=== PATIENT | male | born 1945 | race Caucasian/White ===

== ENCOUNTER 2024-07-23 08:09 | Outpatient (CLI) | payer MEDICARE, SELFPAY ==
[2024-07-23] VITALS (7 sets, daily range): BP systolic 83–150; BP diastolic 40–65; PULSE 60–91; RESP 16–22; TEMP 36.3; O2SAT 98–100; BMI 161.2
--- NOTE | 2024-07-23 10:50 | P.ANES_ITS ---
Anesthesia Charges Start Date/Time Anesthesia Start Date: 07/23/24 Anesthesia Start Time: 10:29 Stop Date/Time Anesthesia Stop Date: 07/23/24 Anesthesia Stop Time: 10:41 Summary Extremes of Age - Over 70 or under 1: MARKETING OPERATIONS ASSOCIATE Coding CPT Codes CPT Codes: ANESTH BONE ASPIRATE/BX - 31397 ([id number]) P3 - PATIENT W/SEVERE SYS DISEASE, QK - LEATHER TOOLER 2-4 CNCRNT ANES PROC, QX - MARKETING OPERATIONS ASSOCIATE SVC W/ MD MED DIRECTION Additional Codes: Summary - Extremes of Age - Over 70 or under 1: MARKETING OPERATIONS ASSOCIATE ([id number])
--- NOTE | 2024-07-23 10:50 | W.ANESCHARGE ---
Anesthesia Charges Start Date/Time Anesthesia Start Date: 07/23/24 Anesthesia Start Time: 10:29 Stop Date/Time Anesthesia Stop Date: 07/23/24 Anesthesia Stop Time: 10:41 Summary Extremes of Age - Over 70 or under 1: PROFESSIONAL SECURITY OFFICER Coding CPT Codes CPT Codes: ANESTH BONE ASPIRATE/BX - 59455 ([id number]) P3 - PATIENT W/SEVERE SYS DISEASE, QK - PRINCIPAL PROCESS ENGINEER 2-4 CNCRNT ANES PROC, QX - PROFESSIONAL SECURITY OFFICER SVC W/ MD MED DIRECTION Additional Codes: Summary - Extremes of Age - Over 70 or under 1: PROFESSIONAL SECURITY OFFICER ([id number])
[2024-07-23 10:52] LABS: Basophils Absolute Auto 0.02 K/uL (0.00-0.30); Basophils Percent Auto 0.3 % (0.0-3.0); Eosinophils Absolute Auto 0.11 K/uL (0.00-0.50); Eosinophils Percent Auto 1.7 % (0.0-7.0); Hematocrit 27.6 % (37.0-53.0); Hemoglobin* 8.8 gm/dL (13.5-17.5); Immature Granulocytes Abs Auto 0.01 K/uL (0.00-0.30); Immature Granulocytes Pct Auto 0.2 %; Immature Reticulocyte Fraction 13.5 % (2.3-13.4); Lymphocytes Percent Auto 8.2 % (20-44); Mean Corpuscular HGB Conc 32 gm/dL (32-36); Mean Corpuscular Hemoglobin 36 pg (26-34); Mean Corpuscular Volume 114 fL (80-100); Monocytes Percent Auto 8.8 % (0.0-11.0); Neutrophils Percent Auto 80.8 % (42.0-72.0); Platelet Count* 183 K/uL (140-440); RDW Coefficient of Variation % 11.8 % (11.5-15.5); Red Blood Count 2.43 m/uL (4.30-5.90); Reticulocyte Hemoglobin Equivi 35.3 pg (29.0-35.0); Reticulocyte Percent 1.7 % (0.5-2.0); Reticulocytes Absolute 0.04 # (0.03-0.08); White Blood Count* 6.38 K/uL (4.50-11.00)
[2024-07-23 10:53] LABS: Slide Review Reflex No
--- NOTE | 2024-07-23 11:04 | W.ANESCHARGE ---
Anesthesia Charges Start Date/Time Anesthesia Start Date: 07/23/24 Anesthesia Start Time: 10:29 Stop Date/Time Anesthesia Stop Date: 07/23/24 Anesthesia Stop Time: 10:41 Summary Extremes of Age - Over 70 or under 1: MDA Coding CPT Codes CPT Codes: ANESTH BONE ASPIRATE/BX - 61036 ([id number]) QK - PHARMACOLOGY PROFESSOR 2-4 CNCRNT ANES PROC, QX - UTILITY INSPECTOR SVC W/ MD MED DIRECTION, P3 - PATIENT W/SEVERE SYS DISEASE Additional Codes: Summary - Extremes of Age - Over 70 or under 1: MDA ([id number])
[2024-07-23 11:42] LABS: Albumin* 4.5 g/dL (3.3-5.0); Chloride* 104 mmol/L (96-114); Potassium* 4.5 mmol/L (3.6-5.1); Sodium* 139 mmol/L (135-149)
[2024-07-23 11:44] LABS: Iron* 86 ug/dL (49-181)
[2024-07-23 11:45] LABS: Alanine Aminotransferase* 19 U/L (4-50); Alkaline Phosphatase* 61 U/L (40-150); Anion Gap 10 mEq/L (7-15); Aspartate Amino Transferase* 29 U/L (12-35); Bilirubin Total* 0.6 mg/dL (0.1-1.5); Blood Urea Nitrogen* 37 mg/dL (7-30); Calcium* 9.8 mg/dL (8.4-10.6); Carbon Dioxide* 25 mmol/L (20-32); Creatinine* 1.3 mg/dL (0.5-1.5); Est. Creatinine Clearance* 52.33; Estimated Glomerular Filt Rate 56 ml/min; Glucose* 120 mg/dL (60-115); Total Protein* 6.6 g/dL (6.0-8.3)
[2024-07-23 11:54] LABS: Percent Iron Saturation 23 % (20-50); Total Iron Binding Capacity 370 ug/dL (261-462)
[2024-07-23 12:19] LABS: Ferritin* 27.3 ng/mL (17.9-464.0)
[2024-07-23 12:34] LABS: Vitamin B12* 718 pg/mL (243-894)
[2024-07-24 12:56] LABS: Folate, Serum >22.3 ng/mL (>=5.9)
[2024-07-26 04:29] LABS: Alpha 1 Globulin 0.32 g/dL (0.19-0.46); Alpha 2 Globulin 0.57 g/dL (0.48-1.05); Immunofixation IFE Done; Immunoglobulin A 129 mg/dL (68-408); Immunoglobulin G 818 mg/dL (768-1632); Immunoglobulin M 42 mg/dL (35-263); Kappa/Lambda Light Chain Ratio 2.07 (0.26-1.65); Lambda Qnt Free Light Chains 19.41 mg/L (5.71-26.30); Monoclonal Protein 0.49 g/dL (<=0.00); Total Protein, Serum 6.6 g/dL (6.3-8.2)
== END 2024-07-23 11:30 | disposition home or self-care (01) ==
PROVIDERS: PCP Internal Medicine; Visit Provider Internal Medicine Hematology & Oncology
DX: D47.2 Monoclonal gammopathy (principal); D64.9 Anemia, unspecified; R19.5 Other fecal abnormalities; D75.89 Other specified diseases of blood and blood-forming organs
CPT/HCPCS: 01112; 36415; 38222; 80053; 82607; 82728; 82746; 82784; 83520; 83540; 83550; 84155; 84165; 85025; 85045; 86334; 88184; 88185; 88237; 88264; 88305; 88311; 88313; 88342; 88360; 99100; J1644; J2003; J2704

== ENCOUNTER 2024-10-27 14:30 | Outpatient (RCR) | payer MEDICARE, SELFPAY ==
--- NOTE | 2024-05-07 09:56 | URNOTE ---
Request received for authorization for Carmina ([id number]). Prior authorization is not required per [facility] injectable drug authorization list.
[2024-05-08 13:12] VITALS: BP 133/61; PULSE 79; RESP 19; TEMP 36.6; O2SAT 94
[2024-05-08] MEDS: ferumoxytoL 510 MG in 0.9 % SODIUM CHLORIDE 250 ml 250 ML 1068 MG IVPB (14:44)
[2024-05-08 15:00] VITALS: BP 123/57; PULSE 71; RESP 16; O2SAT 97
[2024-05-08 15:30] VITALS: BP 131/62; PULSE 67; RESP 16; O2SAT 98
--- NOTE | 2024-05-08 16:23 | ONC.NURNOTE ---
Patient in clinic today for Feraheme infusion. Patient reports he had labs this morning and got a 24 hour urine collection kit. He was advised to not take his aspirin for 3 days while doing the urine collection. He is concerned if he should wait on the iron infusions until after he is done with the urine collection. RN reached out to Dr. Brody who stated it was ok for patient to receive the iron infusion and it would have no affect on his urine results. 1st dose of Feraheme given today.
[2024-05-15 13:01] VITALS: BP 134/66; PULSE 64; RESP 16; TEMP 36.2; O2SAT 100
[2024-05-15] MEDS: ferumoxytoL 510 MG in 0.9 % SODIUM CHLORIDE 250 ml 250 ML 840 MG IVPB (13:34)
[2024-05-15] MEDS: SODIUM CHLORIDE 0.9 % (FLUSH) 10 ML SYRINGE IVF (13:39)
[2024-05-15] MEDS: 0.9 % SODIUM CHLORIDE 500 ML IV (13:39)
[2024-05-15 13:59] VITALS: BP 106/57; PULSE 60; RESP 16; O2SAT 93
[2024-05-15 14:33] VITALS: BP 122/54; PULSE 63; RESP 16; O2SAT 96
[2024-08-19 13:14] VITALS: BP 124/63; PULSE 80; RESP 18; TEMP 36.5; O2SAT 95
[2024-08-19 13:28] LABS: Hematocrit 30.0 % (37.0-53.0); Hemoglobin* 9.5 gm/dL (13.5-17.5); Immature Granulocytes Abs Auto 0.01 K/uL (0.00-0.30); Immature Granulocytes Pct Auto 0.2 %; Mean Corpuscular HGB Conc 32 gm/dL (32-36); Mean Corpuscular Hemoglobin 35 pg (26-34); Mean Corpuscular Volume 111 fL (80-100); RDW Coefficient of Variation % 12.1 % (11.5-15.5); Red Blood Count 2.70 m/uL (4.30-5.90); White Blood Count* 5.80 K/uL (4.50-11.00)
[2024-08-19 13:34] LABS: Lymphocytes Absolute Auto 0.80 K/uL (0.90-2.90)
[2024-08-19 13:35] LABS: Slide Review Reflex No
[2024-08-19 13:39] LABS: Fecal Occult Blood* Positive (Negative)
[2024-08-19 13:52] LABS: Iron* 99 ug/dL (49-181)
[2024-08-19] MEDS: ferumoxytoL 510 MG in 0.9 % SODIUM CHLORIDE 250 ml 250 ML 1068 MG IVPB (13:58)
[2024-08-19] MEDS: DARBEPOETIN ALFA (NON DIALYSIS) 100 MCG SUBCUT (13:58)
[2024-08-19 14:02] LABS: Percent Iron Saturation 26 % (20-50); Total Iron Binding Capacity 378 ug/dL (261-462)
[2024-08-19 14:20] VITALS: BP 134/67; PULSE 59; RESP 16; TEMP 36.3; O2SAT 97
[2024-08-19 14:50] VITALS: BP 144/72; PULSE 68; RESP 16; TEMP 36.2; O2SAT 97
[2024-08-28 13:00] VITALS: BP 155/72; PULSE 79; RESP 16; TEMP 35.9; O2SAT 98
[2024-08-28] MEDS: ferumoxytoL 510 MG in 0.9 % SODIUM CHLORIDE 250 ml 250 ML 1068 MG IVPB (13:11)
[2024-08-28] MEDS: 0.9 % SODIUM CHLORIDE 500 ML IV (13:11)
[2024-08-28] MEDS: SODIUM CHLORIDE 0.9 % (FLUSH) 10 ML SYRINGE IVF (13:11)
[2024-08-28 13:49] VITALS: BP 124/63; PULSE 60; RESP 16; TEMP 36.4; O2SAT 96
[2024-08-28 14:05] VITALS: BP 135/67; PULSE 60; RESP 16; TEMP 36.1; O2SAT 97
[2024-09-16 13:25] VITALS: BP 153/75; PULSE 85; RESP 15; TEMP 36.7; O2SAT 96
[2024-09-16 13:42] LABS: Hematocrit 31.0 % (37.0-53.0); Hemoglobin* 10.1 gm/dL (13.5-17.5); Immature Granulocytes Abs Auto 0.00 K/uL (0.00-0.30); Immature Granulocytes Pct Auto 0.0 %; Mean Corpuscular HGB Conc 33 gm/dL (32-36); Mean Corpuscular Hemoglobin 36 pg (26-34); Mean Corpuscular Volume 110 fL (80-100); RDW Coefficient of Variation % 12.8 % (11.5-15.5); Red Blood Count 2.83 m/uL (4.30-5.90); White Blood Count* 6.58 K/uL (4.50-11.00)
[2024-09-16 13:48] LABS: Lymphocytes Absolute Auto 0.50 K/uL (0.90-2.90); Slide Review Reflex No
[2024-09-16] MEDS: DARBEPOETIN ALFA (NON DIALYSIS) 100 MCG SUBCUT (14:17)
[2024-10-14 13:37] LABS: Hematocrit 28.7 % (37.0-53.0); Hemoglobin* 9.2 gm/dL (13.5-17.5); Immature Granulocytes Abs Auto 0.01 K/uL (0.00-0.30); Immature Granulocytes Pct Auto 0.2 %; Mean Corpuscular HGB Conc 32 gm/dL (32-36); Mean Corpuscular Hemoglobin 35 pg (26-34); Mean Corpuscular Volume 110 fL (80-100); RDW Coefficient of Variation % 13.3 % (11.5-15.5); Red Blood Count 2.60 m/uL (4.30-5.90); White Blood Count* 5.95 K/uL (4.50-11.00)
[2024-10-14 13:39] LABS: Lymphocytes Absolute Auto 0.60 K/uL (0.90-2.90); Slide Review Reflex No
[2024-10-14 14:11] VITALS: BP 146/72; PULSE 80; RESP 18; TEMP 36.4; O2SAT 97
[2024-10-14] MEDS: DARBEPOETIN ALFA (NON DIALYSIS) 100 MCG SUBCUT (14:15)
[2024-10-14 14:19] LABS: Iron* 80 ug/dL (49-181)
[2024-10-14 14:29] LABS: Percent Iron Saturation 25 % (20-50); Total Iron Binding Capacity 325 ug/dL (261-462)
[2024-10-16 23:55] LABS: Albumin 4.26 g/dL (3.75-5.01); Immunoglobulin A 128 mg/dL (68-408); Immunoglobulin G 783 mg/dL (768-1632); Immunoglobulin M 38 mg/dL (35-263)
== END 2024-11-04 23:59 | disposition home or self-care (01) ==
LOC: CCIC 14:30
PROVIDERS: Clinical Nurse Specialist; PCP Internal Medicine; Referring Provider Internal Medicine; Visit Provider Internal Medicine Hematology & Oncology
DX: D53.9 Nutritional anemia, unspecified (principal); N18.32 Chronic kidney disease, stage 3b; D47.2 Monoclonal gammopathy; D75.89 Other specified diseases of blood and blood-forming organs; G62.9 Polyneuropathy, unspecified; Z95.2 Presence of prosthetic heart valve; Z79.01 Long term (current) use of anticoagulants; R19.5 Other fecal abnormalities; N18.9 Chronic kidney disease, unspecified
CPT/HCPCS: 36415; 82270; 82728; 82784; 83520; 83540; 83550; 84155; 84165; 84443; 85025; 86334; 96365; 96372; 99202; 99205; 99214; 99215; G0463; J0881; J2704; J7030; J7050; Q0138

== ENCOUNTER 2024-12-10 16:17 | Emergency (ER) | payer MEDICARE, SELFPAY ==
[2024-12-10] VITALS (22 sets, daily range): BP systolic 119–165; BP diastolic 60–95; PULSE 57–95; RESP 15–20; TEMP 36.6–37; O2SAT 93–98; BMI 24.1
--- OUTSIDE RECORDS SUMMARY | 2024-12-10 16:20 | XMS_ITS | Clinical Summary ---
Author Organization [facility] Address [address] [place] [id number] Care Team Providers Care Strategic Marketing Leader Name Role Phone Abdiaziz Zurita Primary Care Provider [phone] Allergies No known active allergies Medications WARFARIN SODIUM (COUMADIN ORAL) Take 9 mg by mouth once daily. Active hydroCHLOROthi azide (HCTZ) 25 mg tablet Take 25 mg by mouth once daily. Active aspirin chewable 81 mg chewable tablet Take 81 mg by mouth once daily with a meal. Active buPROPion (WELLBUTRIN SR) 150 mg Sustained-Rele ase tablet Take 150 mg by mouth 2 times daily. Active lisinopriL (PRINIVIL; ZESTRIL) 10 mg tablet Take 1 Tablet by mouth once daily. Active ferrous gluconate 324 mg (37.5 mg iron) tab tablet Take 324 mg by mouth once every other day. Active multivitamin (MVI) tablet Take 1 Tablet by mouth once daily. Active verapamil SR (CALAN SR) 120 mg Sustained-Rele ase tablet Take 1 Tablet by mouth once daily with a meal. 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 Max acetaminophen dose: 4000 mg in 24 hrs. 8 Tablet 11/17/2020 10:34 AM CDT 08/11/202 1 Active Social History Tobacco Use Types Packs/Day Years Used Date Smoking Tobacco: Former Smokeless Tobacco: Never Tobacco Cessation:Counseling Given: No Comments:quit 2010 Alcohol Use Standard Drinks/Week Comments Yes 0 (1 standard drink = 0.6 oz pur e alcohol) very little Sex and Gender Information Value Date Recorded Sex Assigned at Not on file Legal Sex Male 1:26 PM CDT Gender Identity Not on file Sexual Orientation Not on file Obstetrics History Last Filed Vital Signs Vital Sign Reading Time Taken Comments Blood Pressure 129/78 11/17/2020 12:00 PM CDT Pulse 66 11/17/2020 12:00 PM CDT Temperature 36.6 C (97.8 F) 11/17/2020 9:05 AM CDT Respiratory Rate 16 11/17/2020 12:00 PM CDT Oxygen Saturation 95% 11/17/2020 9:10 AM CDT Inhaled Oxygen Concentration - - Weight 93 kg (205 lb) 11/17/2020 6:09 AM CDT Height 181 cm (5' 11.26) 11/17/2020 6:09 AM CDT Body Mass Index 28.38 11/17/2020 6:09 AM CDT Plan of Treatment Health Maintenance Due Date Last Done Comments Tetanus booster 1957 Depression screening for age 12+ 1958 BMI (ht and wt on same day) for age 18+ 01/27/1964 Hepatitis C screening for age 18-79 01/27/1964 Pneumococcal series for age 50+ (1 of 1 - PCV) 01/27/1996 Zoster (shingles) series for age 50+ (1 of 2) 01/27/1996 RSV vaccine for adults or (1 - 1-dose 75+ series) 2021 COVID-19 vaccine series ( season) 2023 08/05/2021, 12/03/2020, 06/25/2020, Additional history exists Influenza Vaccine (#1) 2024 Hepatitis B series for 19+ Aged Out N o longer eligible based on patient's age to complete this topic Insurance MEDICARE PART B HB ONLY MEDICARE PB ONLY [facility] MR Advance Directives * Full Code (Latest Code Status on File) Date Activated Date Inactivated Comments 11/17/2020 5:45 AM 11/17/2020 3:38 PM Question Answer Comments Code Status Discussion: Not Discussed Care Teams Strategic Marketing Leader Relationship Specialty Start Date End Date Abdiaziz Zurita PA PCP - General 08/24/16
--- NOTE | 2024-12-10 16:52 | ED.GENADULT ---
HPI - General Adult General Chief complaint: Weakness Stated complaint: Hemoglobin is low, possible bleeding, sent by clin Time Seen by Provider: 12/10/24 16:24 Source: patient Mode of arrival: ambulatory Limitations: no limitations History of Present Illness HPI narrative: Mr. 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 Patient had a clinic appointment today and found have a hemoglobin of 7.1. States that for the last 2 weeks he has felt more fatigued than usual. He states that he has a good appetite. Patient has stool studies that have been positive for blood for many months. He states that his stools are usually dark have been that way for over a year, no recent changes. He denies chest pain, shortness of breath or abdominal pain. Denies feeling dizzy or lightheaded. Related Data Home Medications ?Medication ?Instructions ?Recorded ?Confirmed amoxicillin 500 mg capsule 2,000 mg PO .PRE PRN 05/15/24 10/27/24 carvedilol 12.5 mg tablet 12.5 mg PO Q12H 05/15/24 10/27/24 ferrous sulfate 325 mg (65 mg 325 mg PO DAILY 05/15/24 10/27/24 iron) tablet (FeroSul) hydrochlorothiazide 25 mg tablet 25 mg PO DAILY 05/15/24 10/27/24 losartan 100 mg tablet 100 mg PO DAILY 05/15/24 10/27/24 pravastatin 40 mg tablet 40 mg PO DAILY 05/15/24 10/27/24 spironolactone 50 mg tablet 50 mg PO DAILY 05/15/24 10/27/24 warfarin 7.5 mg tablet 7.5 mg PO DAILY 05/15/24 10/27/24 acetaminophen 500 mg tablet 500 mg PO Q6H PRN 08/13/24 10/27/24 (Tylenol Extra Strength) multivitamin 1 tab PO QAM PRN 08/13/24 10/27/24 Allergies Allergy/AdvReac Type Severity Reaction Status Date / Time No Known Drug Allergies Allergy Verified 10/27/24 14:33 Review of Systems Status of ROS: Reports: 10 or more systems reviewed and unremarkable except as noted in History and below Exam Narrative: Exam Narrative: Well-nourished well-developed elderly patient in no acute distress. Alert and oriented. Answers questions appropriately. Mood and affect are appropriate. Thoughts are goal oriented and rational. No tangential or magical thinking noted. Patient speaks in full sentences without needing to catch his breath. HEENT: Normocephalic atraumatic. Pupils are equally round reactive to light. Extraocular muscles are intact. Conjunctivae are moist without any icterus noted, pale. Moist mucous membranes. Posterior pharynx is normal. Neck is soft without any lymphadenopathy or thyromegaly. No masses are appreciated. Cardiovascular: Heart is regular rate and rhythm. Lungs: Clear to auscultation bilaterally no wheezes rhonchi or rales are appreciated. Abdomen: Soft and nontender nondistended with normal bowel sounds. Extremities: Bilateral lower extremities are without edema. Skin: Well perfused. Const: Vital Signs, click to edit/add: Vital Signs - 24 hr 12/10/24 16:21 12/10/24 16:42 Temperature 97.9 F Pulse Rate [Pulse Oximeter] 95 Respiratory Rate 16 Blood Pressure [Ri ght Upper Arm] 138/66 Pulse Oximetry 94 97 Oxygen Delivery Me thod Room Air Course Course ED Course: IV was established we did go ahead and repeat his hemoglobin which was stable at 7.1. Chemistries were unremarkable, he does have chronic kidney disease labs around his baseline. Informed consent for blood transfusion was obtained after discussion of risks and benefits. At this time we did initiate transfusion of 1 unit of packed red blood cells for chronic anemia, symptomatic. Vital Signs Vital signs: Initial Vital Signs Temperature 97.9 F 12/10/24 16:21 Temperature Source Temporal Artery Scan 12/10/24 16:21 Pulse Rate 95 12/10/24 16:21 Respiratory Rate 16 12/10/24 16:21 Blood Pressure 138/66 12/10/24 16:21 Blood Pressure Mean 90 12/10/24 16:21 Blood Pressure Position Sitting 12/10/24 16:21 Pulse Oximetry 94 12/10/24 16:21 Oxygen Delivery Method Room Air 12/10/24 16:21 Vital Signs Temperature 97.9 F 12/10/24 16:21 Pulse Rate 95 12/10/24 16:21 Respiratory Rate 16 12/10/24 16:21 Blood Pressure 138/66 12/10/24 16:21 Pulse Oximetry 94 12/10/24 16:21 Oxygen Delivery Method Room Air 12/10/24 16:21 Temperature 97.9 F 12/10/24 16:21 Pulse Rate 95 12/10/24 16:21 Respiratory Rate 16 12/10/24 16:21 Blood Pressure 138/66 12/10/24 16:21 Pulse Oximetry 97 12/10/24 16:42 Oxygen Delivery Method Room Air 12/10/24 16:21 Medical Decision Making MDM Narrative Medical decision making narrative: 79-year-old male with chronic anemia, presenting today with increased weakness in hemoglobin 7.1. Status post 1 unit packed red blood cells. Lab Data Lab results reviewed: Yes I reviewed the patient's lab results Labs: Lab Results 12/10/24 Range/Units 16:35 Hgb 7.1 L* (13.5-17.5) gm/dL Sodium 139 (135-149) mmol/L Potassium 4.4 (3.6-5.1) mmol/L Chloride 106 (96-114) mmol/L Carbon Dioxide 26 (20-32) mmol/L Anion Gap 7 (7-15) mEq/L BUN 32 H (7-30) mg/dL Creatinine 1.5 (0.5-1.5) mg/dL Estimated Creat Clear 43.23 Estimated GFR 47 ml/min Glucose 157 H (60-115) mg/dL Calcium 8.9 (8.4-10.6) mg/dL Troponin I 0.02 (0.01-0.04) ng/mL Blood Type O Positive Antibody Screen NEGATIVE Crossmatch (AHG) See Detail Discharge Plan Discharge Clinical Impression: Anemia Patient Disposition: Home, Self-Care Condition: Stable Additional Instructions: Recommend you call Dr. Brody to set up an appointment to recheck your hemoglobin levels in the next 24-48 hours. You should also have your INR levels checked this week. Return to the emergency department if you develop chest pain, shortness of breath, or vomiting. Prescriptions: No Action acetaminophen [Tylenol Extra Strength] 500 mg tablet 500 mg PO Q6H PRN multivitamin Tablet 1 tab PO QAM PRN amoxicillin 500 mg capsule 2,000 mg PO .PRE PRN carvedilol 12.5 mg tablet 12.5 mg PO Q12H pravastatin 40 mg tablet 40 mg PO DAILY warfarin 7.5 mg tablet 7.5 mg PO DAILY Patient Comments: 7.5 mg daily except , takes 11.25 mg (1.5 tabs) ferrous sulfate [FeroSul] 325 mg (65 mg iron) tablet 325 mg PO DAILY hydrochlorothiazide 25 mg tablet 25 mg PO DAILY losartan 100 mg tablet 100 mg PO DAILY spironolactone 50 mg tablet 50 mg PO DAILY Follow Up/Referrals: Lakeisha Longoria PA-C [Primary Care Provider, Family Practice] Stand [facility]: [facility] Info Instructions
[2024-12-10 17:07] LABS: Chloride* 106 mmol/L (96-114); Potassium* 4.4 mmol/L (3.6-5.1); Sodium* 139 mmol/L (135-149)
[2024-12-10 17:10] LABS: Anion Gap 7 mEq/L (7-15); Blood Urea Nitrogen* 32 mg/dL (7-30); Calcium* 8.9 mg/dL (8.4-10.6); Carbon Dioxide* 26 mmol/L (20-32); Creatinine* 1.5 mg/dL (0.5-1.5); Est. Creatinine Clearance* 43.23; Estimated Glomerular Filt Rate 47 ml/min; Glucose* 157 mg/dL (60-115)
[2024-12-10 17:24] LABS: Hemoglobin* 7.1 gm/dL (13.5-17.5)
[2024-12-10 19:32] LABS: INR 2.99 (0.91-1.10); Prothrombin Time 32.3 Seconds
== END 2024-12-10 22:36 | disposition home or self-care (01) ==
PROVIDERS: Emergency Provider Family Medicine; PCP Internal Medicine
DX: D64.9 Anemia, unspecified (principal)
CPT/HCPCS: 36415; 36430; 80048; 84484; 85018; 85610; 86850; 86900; 86901; 86922; 94761; 99283; 99285; P9016